=== PATIENT | male | born 1980 | race Caucasian/White ===

== ENCOUNTER 2016-08-08 12:32 | Emergency (ER) | payer MEDICAID ==
[2016-08-08] MEDS ORDERED: METHYLPRED SOD SUCC 125 MG/2 ML VIAL ONE (14:05)
== END 2016-08-08 14:37 | disposition home or self-care (01) ==
LOC: ER 12:32
DX: J02.0 Streptococcal pharyngitis (principal)
CPT/HCPCS: 87804; 87880; 96372